=== PATIENT | female | born 1985 | race Caucasian/White ===

== ENCOUNTER 2020-09-18 14:01 | Emergency (ER) | payer BC ==
[~2020-09-18] VITALS: Ht 167.6 cm; Wt 104.3 kg
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
[2020-09-18] MEDS ORDERED: ACETAMINOPHEN ES 500 MG TABLET ONE (14:43)
[2020-09-18] MEDS ORDERED: CYCLOBENZAPRINE 10 MG TABLET ONE (14:43)
--- NOTE | 2020-09-18 14:52 | NUR ---
PT TO RADIOLOGY ON [facility]
[2020-09-18] MEDS ORDERED: CYCLOBENZAPRINE 10 MG TABLET PO ONE (15:00)
[2020-09-18] MEDS ORDERED: ACETAMINOPHEN ES 500 MG TABLET PO ONE (15:00)
[2020-09-18] MEDS ORDERED: CYCL5TAB PO (15:30)
--- NOTE | 2020-09-18 15:45 | NUR ---
Patient discharged to home in stable condition. Written and verbal after care instructions given. Patient verbalizes understanding of instruction.
[2020-09-18 15:46] VITALS: BP 123/72
== END 2020-09-18 15:46 | disposition home or self-care (01) ==
LOC: ER 14:49
DX: M54.5 Low back pain (principal); F32.9 Major depressive disorder, single episode, unspecified; V49.49XA Driver injured in collision with other motor vehicles in traffic accident, initial encounter; Y93.89 Activity, other specified; Y92.413 State road as the place of occurrence of the external cause; Y99.8 Other external cause status
CPT/HCPCS: 72131-TC